=== PATIENT | male | born 1990 | race Two or more races ===

== ENCOUNTER 2017-07-03 21:05 | Emergency (ER) | payer OTHER ==
[2017-07-03] MEDS ORDERED: Diphtheria,Pertussis(Acell),Tetanus Vaccine 0.5 ML SDV IM ONE (21:49)
[2017-07-03] MEDS ORDERED: Lidocaine 1% with EPINEPHrine 1:100,000 20 ML MDV INJECT ONE (21:49)
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
--- NOTE | 2017-07-05 06:45 | CR ---
Right hand: Four views of the right hand were obtained. Comparison: No previous study. Slight deformity is seen within the base of the fourth and fifth metacarpals. I believe that these most likely represent old or subacute healing fractures. Soft tissue swelling is seen. No additional bony abnormality is seen. Impression: 1. Findings within the fourth and fifth metacarpals as noted above. 2. Soft tissue swelling. Note: If clinical findings suggest acute bony fracture, CT could then be considered. Diagnostic code #3
== END 2017-07-04 00:25 | disposition home or self-care (01) ==
LOC: JD.ED 21:05
DX: S62.91XA Unspecified fracture of right hand, initial encounter for closed fracture (principal); S62.92XA Unspecified fracture of left hand, initial encounter for closed fracture; S41.112A Laceration without foreign body of left upper arm, initial encounter; F17.210 Nicotine dependence, cigarettes, uncomplicated; Z23 Encounter for immunization; X78.1XXA Intentional self-harm by knife, initial encounter
CPT/HCPCS: 12004; 29125; 73130-26-RT; 73130-RT; 90471; 90715; 99283-25; 99284-25

== ENCOUNTER 2017-12-01 09:38 | Emergency (ER) | payer SELFPAY ==
--- NOTE | 2017-12-01 10:23 | EDM.PDOC ---
ED HPI GENERAL MEDICAL PROBLEM - General Chief Complaint: General Stated Complaint: DENTAL COMPLAINT Time Seen by Provider: 12/01/17 10:22 Source of Information: Reports: Patient History Limitations: Reports: No Limitations - History of Present Illness INITIAL COMMENTS - FREE TEXT/NARRATIVE: 26-year-old male presents to the ED with marked swelling of his right daniel-face particularly from his lip to underneath his right eye. Patient was at the dentist this morning identified to have a dental abscess involving one of his right upper molar teeth. Due to the marked facial swelling he was advised to come to the ED for IV antibiotics. He had been started on oral clindamycin yesterday 300 mg 2 tablets initially and then 1 tablet every 4 hours. In spite of this she's developed a significant facial cellulitis. He is is in significant pain. He did not sleep at all last night. Onset: Sudden Onset Date: 11/29/17 (Was seen by the dentist yesterday and started on clindamycin every 4 hours 300 mg.) Duration: Day(s): Location: Reports: Face (Now has significant swelling of his right upper face from the lip to just underneath his right eye. Upon visiting with a dentist this morning she referred him to the ED.) Quality: Reports: Ache, Throbbing Severity: Moderate Improves with: Reports: None Worsens with: Reports: Other Context: Denies: Activity (Touch), Exercise, Lifting, Sick Contact, Trauma Associated Symptoms: Reports: Weakness, Other. Denies: No Other Symptoms, Confusion, Chest Pain, Cough, cough w sputum, Diaphoresis, Fever/Chills, Headaches, Loss of Appetite, Malaise, Nausea/Vomiting, Rash, Seizure, Shortness of Breath, Syncope Treatments OIL OPERATOR: Reports: NSAIDS, Other (see below) (Hydrocodone. ) Other Treatments OIL OPERATOR: Ibuprofen and hydrocodone Tooth/Teeth Pain Score (Numeric/FACES): 9 - Related Data Allergies Allergy/AdvReac Type Severity Reaction Status Date / Time No Known Allergies Allergy Verified 12/01/17 10:00 Home Meds: Home Meds Ciprofloxacin HCl [Cipro] 500 mg PO BID #20 tablet 12/01/17 [Rx] Clindamycin HCl 300 mg PO QID 12/01/17 [History] Hydrocodone/Acetaminophen [Hydrocodon-Acetaminophen 5-325] 1 tab PO Q4H PRN 07/10 [History] Past Medical History - Past Health History Medical/Surgical History: Denies Medical/Surgical History Social & Family History - Tobacco Use Smoking Status *Q: Current Every Day Smoker Years of Tobacco use: 10 Packs/Tins Daily: 0.5 - Caffeine Use Caffeine Use: Reports: Coffee, Energy Drinks Other Caffeine Use: energy drinks daily at work 1-3 daily - Recreational Drug Use Recreational Drug Use: No - Living Situation & Occupation Living situation: Reports: Single Occupation: Employed ED ROS GENERAL - Review of Systems Review Of Systems: See Below Constitutional: Reports: Malaise, Weakness, Fatigue (From not sleeping 2 nights ), Decreased Appetite, Weight Loss. Denies: Fever, Chills HEENT: Reports: Dental Pain (Very dental pain right upper molar apparently is infected on panoramic x-rays done by the dentist yesterday..), Other (About right hemifacial swelling from above the lip to his eye overnight.) Respiratory: Reports: No Symptoms Cardiovascular: Reports: No Symptoms Endocrine: Reports: No Symptoms GI/Abdominal: Reports: No Symptoms, Decreased Appetite : Reports: No Symptoms Musculoskeletal: Reports: No Symptoms Skin: Reports: No Symptoms Neurological: Reports: No Symptoms Psychiatric: Reports: No Symptoms Hematologic/Lymphatic: Reports: No Symptoms Immunologic: Reports: No Symptoms ED EXAM, GENERAL - Physical Exam Exam: See Below Exam Limited By: No Limitations General Appearance: Alert, WD/WN, Moderate Distress, Other (Obvious swelling of the right daniel-face.) Ears: Normal TMs Throat/Mouth: Normal Inspection, Normal Lips, Normal Oropharynx, Other (He has several bad teeth involving the bicuspids and date before canine tooth in the right upper mandible but apparently it is one of his molars that is infected and causing his pain according to the patient. On looking at those teeth they appeared to be intact and normal. The canine tooth and bicuspid tooth broken off even with the gingiva margin her much more likely be the source of his infection.) Head: Atraumatic, Facial Swelling Neck: Normal Inspection (Large right hemifacial swelling from above his lip up to underneath his right eye and to the anterior aspect of his ear. There is no swelling of his neck or mandible.), Supple, Non-Tender, Full Range of Motion. No: Lymphadenopathy (L), Lymphadenopathy (R) Respiratory/Chest: No Respiratory Distress, Lungs Clear, Normal Breath Sounds, No Accessory Muscle Use Cardiovascular: Normal Peripheral Pulses, Regular Rate, Rhythm, No Edema, No Gallop, No Murmur, No Rub Peripheral Pulses: 3+: Posterior Tibial (L), Posterior Tibial (R), Dorsalis Pedis (L), Dorsalis Pedis (R) Skin Exam: Warm, Dry, Intact, Normal Color, Other (Right daniel-face is markedly swollen it is tender to touch and erythematous compatible with cellulitis.) Course - Vital Signs Last Recorded V/S: Last Vital Signs Temp 37.1 C 12/01/17 10:39 Pulse 81 12/01/17 13:05 Resp 18 12/01/17 13:05 BP 131/84 12/01/17 13:05 Pulse Ox 96 12/01/17 13:05 - Orders/Labs/Meds Meds: Medications Discontinued Medications Generic Name Dose Route Start Last Admin Trade Name Freq PRN Reason Stop Dose Admin Dexamethasone 10 mg 12/01/17 10:35 12/01/17 10:52 Dexamethasone IVPUSH 12/01/17 10:36 10 mg ONETIME ONE Administration Hydromorphone HCl 1 mg 12/01/17 10:34 12/01/17 10:52 Dilaudid IVPUSH 12/01/17 10:35 1 mg ONETIME ONE Administration Clindamycin Phosphate 900 mg/ 106 mls @ 100 mls/hr 12/01/17 10:34 12/01/17 10 :50 Sodium Chloride IV 12/01/17 11:37 100 mls/hr ONETIME ONE Administration Dextrose/Sodium Chloride 1,000 mls @ 999 mls/hr 12/01/17 10:45 12/01/17 10:49 Dextrose 5%-Normal Saline IV 999 mls/hr ASDIRECTED BOBBY Administration Metoclopramide HCl 10 mg 12/01/17 10:34 12/01/17 10:52 Reglan IVPUSH 12/01/17 10:35 10 mg ONETIME ONE Administration - Radiology Interpretation Free Text/Narrative:: 26-year-old male attends the ED with dental abscess that has spread to his right daniel-face. Started only 2 days ago and apparently he seen the dentist yesterday and panoramic x-rays suggested it was one of his molars that was the culprit tooth. However his bicuspid and canine tooth on the right upper side are broken off even with the gingiva margin her much more likely be the sources of this infection. At any rate she's been on clindamycin orally 300 mg every 4 hours all day yesterday and he still developed significant facial cellulitis. Plan will be clindamycin 900 mg IV over an hour and half. Dexamethasone 10 mg IV to help with swelling Toradol 30 mg IV for pain relief with Dilaudid 1 mg IV for pain relief and Reglan 10 mg IV. Patient will be discharged home with additional antibiotic of Cipro 500 twice a day with the clindamycin. Cipro was to be taken for the next 10 days. - Re-Assessments/Exams Free Text/Narrative Re-Assessment/Exam: 12/01/17 13:10 patient states pain is much less and is feeling improved. Swelling certainly doesn't look any worse and perhaps a little bit better I believe probably from the effect of the dexamethasone. Patient advised of his face is swollen more so over the next 24 hours particularly of his eyes closed in the morning he is to return to the ED for further antibiotic therapy. Otherwise he is to continue his clindamycin as previously prescribed 300 mg 4 times a day. I added Cipro 500 mg twice a day for the next 8 days as well to help clear up infection. He has already an appointment arranged with the dentist to have all of the upper teeth extracted. It is going to have to see an oral surgeon because the canine and bicuspids are broken off even with the gingiva margin. To be therefore done by an oral surgeon in [place]. Departure - Departure Time of Disposition: 12:37 Disposition: Home, Self-Care 01 Condition: Fair Clinical Impression: Dental infection - Discharge Information Prescriptions: Ciprofloxacin HCl [Cipro] 500 mg PO BID #20 tablet Referrals: PCP,None [Primary Care Provider] - Forms: ED Department Discharge, ED Return to Work/School Form Additional Instructions: Evaluation the emergency room today in regards to dental abscess that has spread to the right daniel-face over the last 12-24 hours. Enteral infection apparently is coming from one of her right upper molars identified by dentist yesterday. Started on clindamycin which is an excellent antibiotic for ear infection however the infection spread faster than the antibiotic had time to work. He therefore had antibiotics administered intravenously while in the ED today clindamycin 900 mg which will start to work in a couple of hours. You need to continue your clindamycin 300 mg 4 times a day for 1 weeks of therapy. I also added a second antibiotic Cipro 500 mg twice daily for 8 days to clear up dental infection completely. Follow-up with dentist as planned to have this tooth removed or coarse root canal performed to prevent early abscess from reoccurring. Continue ibuprofen 600 mg every 6 hours to relieve pain and inflammation and hydrocodone tablets one or 2 every 4-6 hours as for pain relief as needed. Initially after 48 hours of antibiotics the pain becomes much less. Right hemifacial swelling should start to look improved by tomorrow morning. If not then return to the ED.
[2017-12-01] MEDS ORDERED: Clindamycin Phosphate 900 MG in Sodium Chloride 0.9% 100 ML IV ONE (10:34)
[2017-12-01] MEDS ORDERED: HYDROmorphone 0.5 MG/0.5 ML SYRINGE IVPUSH ONE (10:34)
[2017-12-01] MEDS ORDERED: Metoclopramide 10 MG/2 ML SDV IVPUSH ONE (10:34)
[2017-12-01] MEDS ORDERED: Dexamethasone 10 MG/ML SDV IVPUSH ONE (10:35)
[2017-12-01] MEDS ORDERED: Dextrose 5%-0.9% NaCl 1,000 ML IV SCH (10:45)
== END 2017-12-01 13:05 | disposition home or self-care (01) ==
LOC: JD.ED 09:38
DX: K04.7 Periapical abscess without sinus (principal); F17.210 Nicotine dependence, cigarettes, uncomplicated
CPT/HCPCS: 96365; 96375; 99283; J1100; J1170; J2765; J7030; J7042; 99284

== ENCOUNTER 2018-11-28 20:35 | Emergency (ER) | payer BC, OTHER ==
--- NOTE | 2018-11-28 23:05 | EDM.PDOC ---
ED HPI GENERAL MEDICAL PROBLEM - General Chief Complaint: ENT Problem Stated Complaint: SORE THROAT SWOLLEN BODY ACHES Time Seen by Provider: 11/28/18 21:12 Source of Information: Reports: Patient - History of Present Illness INITIAL COMMENTS - FREE TEXT/NARRATIVE: dictated Treatments PARARESCUE CRAFTSMAN: Reports: Other (see below) Other Treatments PARARESCUE CRAFTSMAN: thera flu Throat Pain Score (Numeric/FACES): 8 - Related Data Allergies Allergy/AdvReac Type Severity Reaction Status Date / Time No Known Allergies Allergy Verified 08/14/18 09:48 Home Meds: Home Meds . [No Known Home Meds] 11/28/18 [History] Past Medical History - Past Health History Medical/Surgical History: Denies Medical/Surgical History Social & Family History - Tobacco Use Smoking Status *Q: Current Every Day Smoker Years of Tobacco use: 15 Packs/Tins Daily: 1 - Caffeine Use Caffeine Use: Reports: Coffee, Energy Drinks, Soda, Tea Other Caffeine Use: energy drinks daily at work 1-3 daily - Recreational Drug Use Recreational Drug Use: No - Living Situation & Occupation Living situation: Reports: Single Occupation: Employed ED ROS GENERAL - Review of Systems Review Of Systems: ROS reveals no pertinent complaints other than HPI. ED EXAM, DIZZINESS - Physical Exam Exam: See Below Text/Narrative:: dictated Course - Vital Signs Last Recorded V/S: Last Vital Signs Temp 36.8 C 11/28/18 20:42 Pulse 75 11/28/18 20:42 Resp 20 11/28/18 20:42 BP 138/89 11/28/18 20:42 Pulse Ox 96 11/28/18 20:42 - Orders/Labs/Meds Orders: Active Orders 24 hr Category Date Time Status CULTURE STREP A CONFIRMATION [RM] Stat Lab 11/28/18 21:30 Results STREP SCRN A RAPID W CULT CONF [] Stat Lab 11/28/18 21:30 Results Labs: Laboratory Tests 11/28/18 Range/Units 23:15 Monoscreen Negative (NEGATIVE) Departure - Departure Time of Disposition: 23:04 Disposition: Home, Self-Care 01 Clinical Impression: Pharyngitis Qualifiers: Pharyngitis/tonsillitis etiology: unspecified etiology Qualified Code(s): J02.9 - Acute pharyngitis, unspecified - Discharge Information Instructions: Pharyngitis, [id number] Referrals: PCP,None [Primary Care Provider] - Forms: ED Department Discharge Additional Instructions: Follow up with PCP as needed. Return if worse. - My Orders Last 24 Hours: My Active Orders 11/28/18 21:30 CULTURE STREP A CONFIRMATION [RM] Stat STREP SCRN A RAPID W CULT CONF [RM] Stat - Assessment/Plan Last 24 Hours: My Active Orders 11/28/18 21:30 CULTURE STREP A CONFIRMATION [RM] Stat STREP SCRN A RAPID W CULT CONF [] Stat
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
== END 2018-11-28 23:25 | disposition home or self-care (01) ==
LOC: JD.ED 20:35
DX: J02.9 Acute pharyngitis, unspecified (principal); F17.210 Nicotine dependence, cigarettes, uncomplicated
CPT/HCPCS: 36415; 86308; 87081; 87430; 87804; 99282; 99283

== ENCOUNTER 2018-11-29 17:28 | Emergency (ER) | payer BC ==
[2018-11-29] MEDS ORDERED: Ketorolac 30 MG/ML SDV IM ONE (19:14)
[2018-11-29] MEDS ORDERED: Dexamethasone 10 MG/ML SDV IVPUSH ONE (19:14)
[2018-11-29] MEDS ORDERED: Dexamethasone 10 MG/ML SDV IM ONE (19:21)
--- NOTE | 2018-11-29 19:23 | EDM.PDOC ---
ED HPI GENERAL MEDICAL PROBLEM - General Chief Complaint: ENT Problem Stated Complaint: THROAT/RESPIRATORY ISSUES Time Seen by Provider: 11/29/18 18:53 Source of Information: Reports: Patient, RN Notes Reviewed History Limitations: Reports: No Limitations - History of Present Illness INITIAL COMMENTS - FREE TEXT/NARRATIVE: Patient is a 27-year-old male who presents to the ED for the evaluation of a swollen throat. He notes that he was just seen here yesterday, and was told he had viral pharyngitis and return if his symptoms worsen. He was checked for strep, influenza, mono, all of these were negative and the strep culture is still pending at this time. He notes that the symptoms have worsened, where he feels as if a he cannot swallow even liquids any longer. He feels as if his voice is becoming more muffled. He states he is unable to lay flat while sleeping as this pushes on his airway and then he is unable to catch his breath. He states that he has had some mild fever although he hasn't checked his temperature at home, continues to have body aches as well. He states that the left side of his throat hurts worse than the right. He does note that there is swelling in all of his throat however. He took his last pain medication at around 1:00. He would rate the pain in his throat at around 8 out of 10. Throat Pain Score (Numeric/FACES): 8 - Related Data Allergies Allergy/AdvReac Type Severity Reaction Status Date / Time No Known Allergies Allergy Verified 08/14/18 09:48 Home Meds: Home Meds predniSONE [Deltasone] 20 mg PO ASDIRECTED #15 tablet 11/29/18 [Rx] Past Medical History - Past Health History Medical/Surgical History: Denies Medical/Surgical History Social & Family History - Caffeine Use Caffeine Use: Reports: Coffee, Energy Drinks, Soda, Tea Other Caffeine Use: energy drinks daily at work 1-3 daily - Living Situation & Occupation Living situation: Reports: Single Occupation: Employed ED ROS ENT - Review of Systems Review Of Systems: See Below Constitutional: Reports: Fever, Chills HEENT: Reports: Throat Pain, Throat Swelling. Denies: Sinus Problem Respiratory: Reports: No Symptoms Cardiovascular: Reports: Orthopnea Endocrine: Reports: No Symptoms GI/Abdominal: Reports: No Symptoms : Reports: No Symptoms Musculoskeletal: Reports: No Symptoms Skin: Reports: No Symptoms Neurological: Reports: No Symptoms Psychiatric: Reports: No Symptoms Hematologic/Lymphatic: Reports: No Symptoms Immunologic: Reports: No Symptoms ED EXAM, ENT - Physical Exam Exam: See Below Exam Limited By: No Limitations General Appearance: Alert, WD/WN, No Apparent Distress Eye Exam: Bilateral Eye: EOMI, Normal Inspection, PERRL Ears: Normal External Exam, Normal Canal, Hearing Grossly Normal, Normal TMs Nose: Normal Inspection, Normal Mucousa, No Blood Mouth/Throat: Normal Inspection, Normal Gums, Normal Lips, Normal Teeth, Muffled Voice, Pharyngeal Erythema, Throat Pain, Throat Swelling, Other (There was some whitish colored drainage located on the right tonsil). No: Dental Tenderness, Drooling, Tongue Swelling, Trismus, Uvular Deviation, Uvular Edema Head: Atraumatic, Normocephalic Neck: Normal Inspection, Supple, Full Range of Motion, Tender Lateral (left sided tenderness) Respiratory/Chest: No Respiratory Distress, Lungs Clear, Normal Breath Sounds, No Accessory Muscle Use, Chest Non-Tender Cardiovascular: Normal Peripheral Pulses, Regular Rate, Rhythm, No Murmur GI/Abdominal: Normal Bowel Sounds, Soft, Non-Tender, No Distention, No Mass Extremities: Normal Inspection, Normal Capillary Refill Neurological: Alert, Oriented, Normal Cognition, No Motor/Sensory Deficits Psychiatric: Normal Affect, Normal Mood Skin: Warm, Dry, Intact, Normal Color, No Rash Lymphatic: No Adenopathy Course - Vital Signs Last Recorded V/S: Last Vital Signs Temp 99.3 F 11/29/18 18:21 Pulse 79 11/29/18 18:21 Resp 18 11/29/18 18:21 BP 134/92 H 11/29/18 18:21 Pulse Ox 98 11/29/18 18:21 - Orders/Labs/Meds Orders: Active Orders 24 hr Category Date Time Status Peripheral IV Care [RC] . DIRECTED Care 11/29/18 20:53 Ordered Sodium Chloride 0.9% [Normal Saline] 1,000 ml Med 11/29/18 21:00 Active IV ASDIRECTED Sodium Chloride 0.9% [Saline Flush] Med 11/29/18 20:53 Active 10 ml FLUSH ASDIRECTED PRN Peripheral IV Insertion Adult [OM.PC] Routine Oth 11/29/18 20:53 Ordered Medication Orders Sodium Chloride (Normal Saline) 1,000 mls @ 999 mls/hr IV ASDIRECTED BOBBY Last Admin: 11/29/18 21:00 Dose: 999 mls/hr Sodium Chloride (Saline Flush) 10 ml FLUSH ASDIRECTED PRN PRN Reason: Keep Vein Open Last Admin: 11/29/18 21:00 Dose: 10 ml Meds: Medications Generic Name Dose Route Start Last Admin Trade Name Freq PRN Reason Stop Dose Admin Sodium Chloride 1,000 mls @ 999 mls/hr 11/29/18 21:00 11/29/18 21:00 Normal Saline IV 999 mls/hr ASDIRECTED BOBBY Administration Sodium Chloride 10 ml 11/29/18 20:53 11/29/18 21:00 Saline Flush FLUSH 10 ml ASDIRECTED PRN Administration Keep Vein Open Discontinued Medications Generic Name Dose Route Start Last Admin Trade Name Freq PRN Reason Stop Dose Admin Dexamethasone 10 mg 11/29/18 19:14 11/29/18 19:30 Dexamethasone IVPUSH 11/29/18 19:15 Not Given ONETIME ONE Dexamethasone 10 mg 11/29/18 19:21 11/29/18 19:29 Dexamethasone IM 11/29/18 19:22 10 mg ONETIME ONE Administration Ketorolac Tromethamine 30 mg 11/29/18 19:14 11/29/18 19:29 Toradol IM 11/29/18 19:15 30 mg ONETIME ONE Administration - Re-Assessments/Exams Free Text/Narrative Re-Assessment/Exam: 11/29/18 19:43 Patient presents to the ED for the evaluation of worsening throat swelling and pain. Have ordered 30 mg IM Toradol, 10 mg IM dexamethasone, and a soft tissue neck CT for further evaluation, as these symptoms have been present for around one week now and do not seem to be getting better. 11/29/18 20:[address] of his neck is done and does not demonstrate any acute abnormality , there is a calcification which is noted within the left parapharyngeal soft tissue measuring 2.7 mm which is likely dystrophic from an old infection. There is also some mild mucosal thickening seen within both maxillary sinuses. 11/29/18 20:52 Patient was reassessed at bedside and states that he still has not been able to drink any fluids in the ED. I will have the nurse start an IV and give him a bag of fluids. 11/29/18 21:42 Patient states that he feels mildly better after the start of IV fluids. I have recommended that he sleep upright tonight in a recliner to provide further relief of symptoms at this time. I will give him a burst of prednisone for further inflammation relief. I have also recommended that he may be he be evaluated by an ENT specialist if his symptoms persist. He is amenable to this plan. Departure - Departure Time of Disposition: 21:43 Disposition: Home, Self-Care 01 Condition: Fair Clinical Impression: Viral pharyngitis - Discharge Information *PRESCRIPTION DRUG MONITORING PROGRAM REVIEWED*: No *COPY OF PRESCRIPTION DRUG MONITORING REPORT IN PATIENT MARCIO: No Prescriptions: predniSONE [Deltasone] 20 mg PO ASDIRECTED #15 tablet Instructions: Pharyngitis, [id number] Referrals: PCP,None [Primary Care Provider] - Forms: ED Department Discharge Additional Instructions: You have been evaluated in the ED tonight for your sore throat/throat swelling. You did have a CT done in the ED, this did not demonstrate any acute abnormality that would be causing your throat swelling or pain. You have been given IV fluids, Toradol, dexamethasone for pain relief and an anti-inflammatory effect in your throat. You have been provided with prescription for prednisone, please take this as directed. One tab by mouth twice daily for 5 days then only 1 tab by mouth once daily for 5 days. This prescription was electronically sent to [facility] located on [address]. You may take Tylenol/ibuprofen every 6 hours as needed for pain relief. Please do not exceed 4000 mg Tylenol or 3200 mg ibuprofen in a 24 hour time span. If your symptoms do not improve after you are done with the prednisone, recommend that you follow up with an pearl fisherman. Dr. Wilkins, Dr. Ferro, You may call Health information management at any time to have your records sent to the specialist of your choosing. Please return to the ED if your symptoms should change or worsen. - My Orders Last 24 Hours: My Active Orders 11/29/18 20:53 Peripheral IV Care [RC] . DIRECTED Sodium Chloride 0.9% [Saline Flush] 10 ml FLUSH ASDIRECTED PRN Peripheral IV Insertion Adult [OM.PC] Routine 11/29/18 21:00 Sodium Chloride 0.9% [Normal Saline] 1,000 ml IV ASDIRECTED - Assessment/Plan Last 24 Hours: My Active Orders 11/29/18 20:53 Peripheral IV Care [RC] . DIRECTED Sodium Chloride 0.9% [Saline Flush] 10 ml FLUSH ASDIRECTED PRN Peripheral IV Insertion Adult [OM.PC] Routine 11/29/18 21:00 Sodium Chloride 0.9% [Normal Saline] 1,000 ml IV ASDIRECTED
[2018-11-29] MEDS ORDERED: Iopamidol 755 Mg/ML 200 ML Bottle IV ONE (19:50)
[2018-11-29] MEDS ORDERED: Sodium Chloride 0.9% 10 ML Syringe FLUSH PRN ×2 (19:51→20:53)
--- NOTE | 2018-11-29 20:19 | CT ---
CT neck Technique: Multiple axial sections through the neck were obtained. Intravenous contrast was not utilized. Lack of contrast limits evaluation for soft tissue abnormalities. Findings: Visualized lung apices are clear. Thyroid gland shows no discrete nodule. Scattered lymph nodes are seen which are believed to be incidental. No discrete parotid abnormality or submandibular abnormality is seen. Soft tissues of the parapharyngeal regions appear symmetric. Calcification is noted within the left parapharyngeal soft tissues measuring 3.7 mm which is likely dystrophic from old infection. Mild mucosal thickening is seen within both maxillary sinuses. Prevertebral soft tissues are normal in thickness. Bony structures appear unremarkable. Impression: 1. Limited study due to lack of intravenous contrast. 2. Other incidental findings as noted above. No definite acute abnormality is appreciated. Diagnostic code #2
[2018-11-29] MEDS ORDERED: Sodium Chloride 0.9% 1,000 ML IV SCH (21:00)
== END 2018-11-29 22:18 | disposition home or self-care (01) ==
LOC: JD.ED 17:28
DX: J02.9 Acute pharyngitis, unspecified (principal)
CPT/HCPCS: 70490; 96365; 99284; J1100; J1885; J7040; 99283

== ENCOUNTER 2020-08-26 20:42 | Emergency (ER) | payer SELFPAY ==
--- NOTE | 2020-08-26 20:55 | EDM.PDOC ---
ED HPI GENERAL MEDICAL PROBLEM - General Chief Complaint: Lower Extremity Injury/Pain Stated Complaint: TOE INJURY Time Seen by Provider: 08/26/20 20:54 - History of Present Illness INITIAL COMMENTS - FREE TEXT/NARRATIVE: 29-year-old male presents the emergency room with a left little toe injury. This morning the patient was stepping over the dog and inadvertently kicked the wall. Patient had some bloody discharge around his toenail he wrapped it with a Band-Aid got on with his day has been sore pretty much all day. Now he is concerned because it looks like the whole nail plate is loose inside there. Patient denies any other injury with this most unfortunate event. Left Toe-Little Pain Score (Numeric/FACES): 8 - Related Data Allergies Allergy/AdvReac Type Severity Reaction Status Date / Time No Known Allergies Allergy Verified 08/26/20 20:53 Home Meds: Home Meds cephALEXin [Keflex] 500 mg PO QID #28 cap 08/26/20 [Rx] Past Medical History - Past Health History Medical/Surgical History: Denies Medical/Surgical History Social & Family History - Caffeine Use Caffeine Use: Reports: Coffee, Energy Drinks, Soda, Tea Other Caffeine Use: energy drinks daily at work 1-3 daily - Living Situation & Occupation Living situation: Reports: Single Occupation: Employed Review of Systems - Review of Systems Review Of Systems: See Below Constitutional: Reports: No Symptoms Respiratory: Reports: No Symptoms Cardiovascular: Reports: No Symptoms GI/Abdominal: Reports: No Symptoms ED EXAM, GENERAL - Physical Exam Exam: See Below Exam Limited By: No Limitations General Appearance: Alert, No Apparent Distress Respiratory/Chest: No Respiratory Distress, Lungs Clear, Normal Breath Sounds Cardiovascular: Regular Rate, Rhythm, No Edema, No Murmur Extremities: Other (Patient is left foot shows a traumatized fifth digit. The nail plate appears to be avulsed partially and is clear of the lateral margin medial margin and anterior margin. However it is still firmly attached neurovascular status of the foot is normal) Course - Vital Signs Last Recorded V/S: Last Vital Signs Temp 36.2 C 08/26/20 20:51 Pulse 80 08/26/20 20:51 Resp 16 08/26/20 20:51 BP 144/75 H 08/26/20 20:51 Pulse Ox 100 08/26/20 20:51 - Orders/Labs/Meds Orders: Active Orders 24 hr Category Date Time Status Toes Fifth Digit Lt T4 [CR] Stat Exams 08/26/20 21:08 Taken Meds: Medications Discontinued Medications Generic Name Dose Route Start Last Admin Trade Name Russell PRN Reason Stop Dose Admin Cephalexin 500 mg 08/26/20 22:12 Keflex PO 08/26/20 22:13 ONETIME ONE - Re-Assessments/Exams Free Text/Narrative Re-Assessment/Exam: 08/26/20 22:17 Reviewed this laurence's x-ray and I cannot exclude a tuft fracture I will start him on Keflex 500 4 times daily for a week. Departure - Departure Time of Disposition: 22:18 Disposition: Home, Self-Care 01 Clinical Impression: Traumatic avulsion of nail plate of toe Qualifiers: Encounter type: initial encounter Qualified Code(s): S91.209A - Unspecified open wound of unspecified toe(s) with damage to nail, initial encounter - Discharge Information Prescriptions: cephALEXin [Keflex] 500 mg PO QID #28 cap Referrals: PCP,None [Primary Care Provider] - Forms: ED Department Discharge Additional Instructions: Return to the emergency room with any questions problems or worsening symptoms. Keep your foot clean and dry. You may bathe your foot but allow it to dry and air out thoroughly before redressing it. Keep a Band-Aid over the nail and gently tape your little toe to the toe next to it. Take the antibiotics as directed your first dose was given here in the emergency room and the prescription was sent electronically to [facility] Follow-up in the clinic for recheck call tomorrow for an appointment trying to be seen around the end of this week. Clinic phone number is [phone] Sepsis Event Note (ED) - Evaluation Sepsis Screening Result: No Definite Risk - Focused Exam Vital Signs: Vital Signs Temp Pulse Resp BP Pulse Ox 08/26/20 20:51 36.2 C 80 16 144/75 H 100 - My Orders Last 24 Hours: My Active Orders 08/26/20 21:08 Toes Fifth Digit Lt T4 [CR] Stat - Assessment/Plan Last 24 Hours: My Active Orders 08/26/20 21:08 Toes Fifth Digit Lt T4 [CR] Stat
[2020-08-26] MEDS ORDERED: Cephalexin 500 MG Cap PO ONE (22:12)
--- NOTE | 2020-08-27 14:13 | CR ---
Left fifth toe: 4 views of the left fifth toe were obtained. Joint spaces are preserved. No discrete fracture or other bony abnormality is appreciated. Impression: 1. No acute bony abnormality is seen on left fifth toe exam. Diagnostic code #1
== END 2020-08-26 22:31 | disposition home or self-care (01) ==
LOC: JD.ED 20:42
DX: S61.307A Unspecified open wound of left little finger with damage to nail, initial encounter (principal); W22.8XXA Striking against or struck by other objects, initial encounter
CPT/HCPCS: 73660; 99283; A9270

== ENCOUNTER 2021-02-27 18:01 | Emergency (ER) | payer SELFPAY ==
[2021-02-27] MEDS ORDERED: Ondansetron 4 MG Tab.DIS PO ONE (18:37)
--- NOTE | 2021-02-27 18:43 | EDM.PDOCBH ---
ED HPI GENERAL MEDICAL PROBLEM - General Chief Complaint: Drug or Alcohol Abuse Stated Complaint: WITHDRAWING FROM OPIATES Time Seen by Provider: 02/27/21 18:37 Source of Information: Reports: Patient History Limitations: Reports: No Limitations - History of Present Illness INITIAL COMMENTS - FREE TEXT/NARRATIVE: 30-year-old male presents to the ED with early signs and symptoms of opioid withdrawal. Patient has been using street drugs primarily oxycodone 30 mg strength and he believes occasionally laced with fentanyl. He often smokes the opioids to get a high. Last use was approximately 36 hours. At present he has rhinorrhea ,mild nausea lower abdominal cramping pain with mild diarrhea. He has not been able to eat much today. Feels a bit jittery inside and mildly a nxious. He needs to get off opioids in the hopes of obtaining a job in the next week. He is he states he has been using opioids almost on a daily basis for the last 4 months. He has never used intravenous opioids. Onset: Gradual Onset Date: 02/26/21 Duration: Hour(s): (Last use of opioids was about 36 hours ago.), Getting Worse, Waxing/Waning Location: Reports: Generalized Quality: Reports: Other (Combination of symptoms with mild rhinorrhea. Associated mild nausea with no vomiting. Abdominal cramping pain with mild diarrhea.) Severity: Moderate Improves with: Reports: None Worsens with: Reports: Other (Little worse with trying to eat or drink today.) Context: Reports: Other (Acute opioid withdrawal after 4 months of daily use). Denies: Activity, Exercise, Lifting, Sick Contact, Trauma Associated Symptoms: Reports: Headaches, Loss of Appetite, Malaise, Nausea/Vomiting. Denies: Confusion (. Last use 36 hours ago), Chest Pain, Co ugh, cough w sputum, Diaphoresis, Fever/Chills, Rash, Seizure (Nausea without vomiting), Shortness of Breath, Syncope, Weakness Treatments CLIENT ACCOUNT SPECIALIST: Reports: Other (see below) Generalized Pain Score (Numeric/FACES): 8 - Related Data Allergies Allergy/AdvReac Type Severity Reaction Status Date / Time No Known Allergies Allergy Verified 02/27/21 18:16 Home Meds: Home Meds Dicyclomine [Bentyl] 20 mg PO Q6H PRN #12 tablet 02/27/21 [Rx] LORazepam [Ativan] 1 mg PO ASDIRECTED #18 tablet 02/27/21 [Rx] Ondansetron [Zofran] 4 mg BUCCAL Q6H PRN #14 tab 02/27/21 [Rx] cloNIDine [Catapres] 0.1 mg PO ASDIRECTED #28 tab 02/27/21 [Rx] Past Medical History - Past Health History Medical/Surgical History: Denies Medical/Surgical History Psychiatric History: Reports: Addiction Social & Family History - Tobacco Use Tobacco Use Status *Q: Current Every Day Tobacco User Years of Tobacco use: 16 Packs/Tins Daily: 1 - Caffeine Use Caffeine Use: Reports: Soda Other Caffeine Use: energy drinks daily at work 1-3 daily - Recreational Drug Use Recreational Drug Type: Reports: Fentanyl, Oxycodone - Living Situation & Occupation Living situation: Reports: Single Occupation: Employed ED ROS GENERAL - Review of Systems Review Of Systems: See Below Constitutional: Reports: Malaise, Weakness, Fatigue, Decreased Appetite. Denies: Fever, Chills HEENT: Reports: No Symptoms Respiratory: Reports: No Symptoms Cardiovascular: Reports: No Symptoms Endocrine: Reports: Fatigue GI/Abdominal: Reports: Abdominal Pain, Diarrhea (Mostly lower abdominal cramping pain associate with mild diarrhea mild loose stools watery yellow in color), Nausea. Denies: Vomiting : Reports: No Symptoms Musculoskeletal: Reports: No Symptoms Skin: Reports: No Symptoms Neurological: Reports: Tremors. Denies: Confusion, Dizziness, Headache, Numbness, Paresthesia, Pre-Existing Deficit, Seizure, Syncope, Tingling, Trouble Speaking, Difficulty Walking, Weakness, Change in Speech (Feels mildly tremorous and jittery.), Gait Disturbance Psychiatric: Reports: Anxiety, Other (Mild anxiety. Early signs of opioid withdrawal.) Hematologic/Lymphatic: Reports: No Symptoms Immunologic: Reports: No Symptoms ED EXAM, BEHAVIORAL HEALTH - Physical Exam Exam: See Below Exam Limited By: No Limitations General Appearance: Alert, WD/WN, No Apparent Distress, Other (Temperature is 35.9 degrees. Heart rate 78 sinus. Respiratory is 18 with O2 sats of 99% room air. BP 145/91.) Eye Exam: Bilateral Eye: Normal Inspection (No scleral icterus or blepharal pallor.), PERRL Throat/Mouth: Normal Inspection, Normal Lips, Normal Teeth, Normal Oropharynx Head: Atraumatic, Normocephalic Neck: Normal Inspection, Supple, Non-Tender, Full Range of Motion. No: Lymphadenopathy (L), Lymphadenopathy (R) Respiratory/Chest: No Respiratory Distress, Lungs Clear, Normal Breath Sounds, No Accessory Muscle Use Cardiovascular: Normal Peripheral Pulses, Regular Rate, Rhythm, No Edema, No Gallop, No Murmur, No Rub GI/Abdominal: Normal Bowel Sounds, Soft, Non-Tender, No Organomegaly, No Abnormal Bruit, No Mass, Pelvis Stable Extremities: Normal Inspection, Normal Range of Motion, Non-Tender, Other (No evidence of tracts or needle long in his upper extremities to suggest IV drug use.) Neurological: Alert, Normal Mood/Affect, CN II-XII Intact, Normal Cognition, Normal Gait, No Motor/Sensory Deficits, Oriented x 3 Psychiatric: Alert, Normal Affect, Normal Cognition, Normal Mood, Oriented Skin Exam: Warm, Dry, Intact, Normal color, No rash COURSE, BEHAVIORAL HEALTH COMP - Course Vital Signs: Last Vital Signs Temp 35.9 C L 02/27/21 18:13 Pulse 78 02/27/21 18:13 Resp 18 02/27/21 18:13 BP 145/91 H 02/27/21 18:13 Pulse Ox 99 02/27/21 18:13 Orders, Labs, Meds: Medications Discontinued Medications Generic Name Dose Route Start Last Admin Trade Name Russell PRN Reason Stop Dose Admin Ondansetron HCl 4 mg 02/27/21 18:37 02/27/21 18:40 Ondansetron 4 Mg Tab.Dis PO 02/27/21 18:38 4 mg ONETIME ONE Administration Re-Assessment/Re-Exam: 30-year-old male presents to the ED with mild opioid withdrawal. He has been using street drugs for about 4 months. States it started after simply using opioids at a green party about 4 months ago. He became addicted. He has been using what sounds like oxycodone [address] off and on for about 4 months. Has used Percocet and hydrocodone as well. He believes some of them are laced with fentanyl as well. He has never used heroin. He has no use of IV opioids. Usually medication is taken orally or smoked. Last use was 36 hours ago. 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 Advised he is going to have a rough week. Given Zofran 4 mg under the tongue here for nausea relief. Prescription written for the same medication every 4 to 6 hours as as needed for nausea relief. Clonidine 0.1 mg 1 tablet every 6 hours for the next 3 days then 1 tablet every 8 hours for 2 days and then 1 tablet every 12 hours for 2 days and off. Lorazepam 1 mg every 6 hours for for 2 days then every 8 hours for 2 days then every 12 hours for 2 days and off. Zofran as above Bentyl 20 mg every 6 hours as needed for relief of abdominal pain or cramping and diarrhea control. Advised plenty of clear fluids and diet as tolerated. He will return if he has uncontrolled vomiting fever chills or severe diarrhea. Departure - Departure Time of Disposition: 18:38 Disposition: Home, Self-Care 01 Condition: Fair Clinical Impression: Drug dependence, Acute opioid withdrawal - Discharge Information *PRESCRIPTION DRUG MONITORING PROGRAM REVIEWED*: Not Applicable *COPY OF PRESCRIPTION DRUG MONITORING REPORT IN PATIENT MARCIO: Not Applicable Prescriptions: LORazepam [Ativan] 1 mg PO ASDIRECTED #18 tablet Dicyclomine [Bentyl] 20 mg PO Q6H PRN #12 tablet PRN Reason: Abdominal cramps/diarrhea cloNIDine [Catapres] 0.1 mg PO ASDIRECTED #28 tab Ondansetron [Zofran] 4 mg BUCCAL Q6H PRN #14 tab PRN Reason: nausea or vomiting Instructions: Opioid Use Disorder Referrals: PCP,None [Primary Care Provider] - Forms: ED Department Discharge Additional Instructions: Evaluation in the emergency room today in regards to early signs and symptoms of opioid withdrawal with rhinorrhea or runny nose associated nausea with lower abdominal cramping pain and diarrhea. General feeling of illness. Treatment is to use lorazepam 1 mg every 6 hours for 2 days and then 1 tablet every 8 hours for 2 days and then 1 tablet every 12 hours for 2 days to get you through the acute phase of opioid withdrawal. May use Zofran 4 mg under the tongue every 4- 6 hours necessary for nausea or vomiting relief. Bentyl 20 mg tablet every 6 hours as necessary for relief of abdominal cramping pain and diarrhea. Clonidine 0.1 mg tablet every 6 hours for 3 days and then every 8 hours for 2 days and then every 12 hours for 2 days again to relieve signs and symptoms of opioid withdrawal. You would need to return to the emergency room if you have uncontrolled nausea vomiting and developing dehydration. Suggest fluids such as Gatorade or Powerade which are almost identical to IV fluids and sipping 5 to 6 ounces an hour will help maintain normal hydration. Diet as tolerated. Usually avoid dairy products and no apple juice or grape juice until stools are formed back up. Sepsis Event Note (ED) - Evaluation Sepsis Screening Result: No Definite Risk - Focused Exam Vital Signs: Vital Signs Temp Pulse Resp BP Pulse Ox 02/27/21 18:13 35.9 C L 78 18 145/91 H 99
== END 2021-02-27 18:55 | disposition home or self-care (01) ==
LOC: JD.ED 18:01
DX: F11.23 Opioid dependence with withdrawal (principal); Z72.0 Tobacco use
CPT/HCPCS: 99283; A9270; 99284

== ENCOUNTER 2024-01-28 17:03 | Emergency (ER) | payer SELFPAY ==
[2024-01-28 17:51] LABS: BASOPHILS PERCENT AUTO 0.2 % (0.0-1.0); EOSINOPHILS ABSOLUTE AUTO 0.2 K/mm3 (0.0-0.4); HEMATOCRIT 41.4 % (42.0-52.0); HEMOGLOBIN 14.5 gm/dl (14.0-18.0); IMMATURE GRAN ABSOLUTE AUTO 0.08 K/mm3 (0.00-0.05); LYMPHOCYTES PERCENT AUTO 35.2 % (24.0-44.0); MEAN CORPUSCULAR VOLUME 88.7 fl (83.0-99.0); MEAN PLATELET VOLUME 8.6 fl (9.4-12.4); MONOCYTES ABSOLUTE AUTO 0.7 K/mm3 (0.0-0.8); MONOCYTES PERCENT AUTO 8.5 % (0.0-8.0); NEUTROPHILS ABSOLUTE AUTO 4.4 K/mm3 (1.8-7.7); NEUTROPHILS PERCENT AUTO 53.1 % (41.0-71.0); PLATELET COUNT,PLT 238 K/mm3 (150-400); RED BLOOD CELL COUNT 4.67 M/mm3 (4.52-5.90); WHITE BLOOD CELL COUNT,WBC 8.37 K/mm3 (3.9-11.3)
[2024-01-28 18:10] LABS: INR 1.07; PROTHROMBIN TIME 11.4 SECONDS (9.7-12.0)
[2024-01-28 18:12] LABS: PTT,PARTIAL THROMBOPLSTIN TIME 28.9 SECONDS (21.7-31.4)
[2024-01-28 18:14] LABS: ANION GAP 15.3 (5-15); CALCIUM 8.8 mg/dL (8.5-10.1); EST CRCL DRUG DOSING (CG) 113.17 mL/min; POTASSIUM,K 3.3 mEq/L (3.5-5.1)
[2024-01-28 18:32] LABS: D-DIMER QUANTITATIVE 6.04 mg/L (0.19-0.50)
[2024-01-28] MEDS: Potassium Chloride 20 MEQ Tab.ER PO ONE (18:58)
[2024-01-28] MEDS: Iopamidol 755 Mg/ML 100 ML Bottle IVPUSH ONE (19:24)
[2024-01-28] MEDS: Sodium Chloride 0.9% 10 ML Syringe FLUSH PRN (19:26)
[2024-01-28] MEDS ORDERED: Sodium Chloride 0.9% 100 ML IV SCH (19:30)
[2024-01-28] MEDS: Ketorolac 30 MG/ML SDV IVPUSH ONE (20:16)
== END 2024-01-28 20:23 ==
LOC: JD.ED 17:03
DX: S20.212A Contusion of left front wall of thorax, initial encounter (principal); S80.02XA Contusion of left knee, initial encounter; S50.02XA Contusion of left elbow, initial encounter; S10.93XA Contusion of unspecified part of neck, initial encounter; S70.02XA Contusion of left hip, initial encounter; Y04.0XXA Assault by unarmed brawl or fight, initial encounter
CPT/HCPCS: 36415; 70450; 70486; 71045; 71275; 72125; 72131; 72170; 73080; 73562; 80048; 85025; 85379; 85610; 85730; 96374; 99285; J1885; J3490; Q9967; A9270-GY